=== PATIENT | male | born 1995 | race Caucasian/White ===

== ENCOUNTER 2017-06-18 18:36 | Emergency (ER) | payer MEDICAID, OTHER ==
[2017-06-19] MEDS: LORAZEPAM 0.5 MG TAB PO (00:40)
== END 2017-06-19 01:30 | disposition home or self-care (01) ==
LOC: FTE 18:36
DX: R07.89 Other chest pain (principal); F43.0 Acute stress reaction; L30.5 Pityriasis alba
CPT/HCPCS: 93005; 99283-25

== ENCOUNTER 2018-11-10 00:18 | Emergency (ER) | payer MEDICAID | END 2018-11-10 02:55 | disposition home or self-care (01) | LOC: FTE 00:18 | DX: J02.0 Streptococcal pharyngitis (principal); B00.9 Herpesviral infection, unspecified | CPT/HCPCS: 99283; Z7502 ==